=== PATIENT | female | born 1995 | race American Indian/Alaskan Native ===

== ENCOUNTER 2019-09-26 06:13 | Emergency (ER) | payer SELFPAY ==
[2019-09-26 06:53] LABS: Basophils % (Auto) 0.1 % (0.0-1.8); Eosinophils # (Auto) 0.1 K/mm3 (0.0-0.4); Eosinophils % (Auto) 0.7 % (0.0-4.3); Hematocrit 41.1 % (30.3-42.9); Lymphocytes # (Auto) 3.1 K/mm3 (1.2-5.4); Mean Corpuscular HGB Conc 32 % (30-34); Mean Corpuscular Volume 77 fl (79-97); Monocytes # (Auto) 1.1 K/mm3 (0.0-0.8); Monocytes % (Auto) 8.6 % (0.0-7.3); Platelet Count 282 K/mm3 (140-440); Red Blood Count 5.36 M/mm3 (3.65-5.03); Red Cell Distribution Width 16.3 % (13.2-15.2)
[2019-09-26 07:18] LABS: Alanine Aminotransferase 16 units/L (7-56); Albumin 4.5 g/dL (3.9-5); BUN/Creatinine Ratio 16; Blood Urea Nitrogen 13 mg/dL (7-17); Calcium 9.7 mg/dL (8.4-10.2); Hemolysis Index 7
[2019-09-26 07:33] LABS: Bacteria,Urine 1+ /HPF (Negative); Bilirubin,Urine NEG (Negative); Blood,Urine MOD (Negative); Color,Urine Yellow (Yellow); Mucus,Urine 2+ /HPF; Protein,Urine <15 mg/dL mg/dL (Negative); Urobilinogen,Urine < 2.0 mg/dL (<2.0)
[2019-09-26] MEDS ORDERED: SODIUM CHLORIDE 0.9% 1000 ML 1,000 ML IV ONE (08:14)
[2019-09-26] MEDS ORDERED: MORPHINE 4 MG/1 ML INJ IV ONE (08:14)
[2019-09-26] MEDS ORDERED: ONDANSETRON 4 MG/2 ML INJ IV ONE (08:14)
--- NOTE | 2019-09-26 08:21 | Emergency Department Report ---
ED Abdominal Pain HPI - General Chief Complaint: Abdominal Pain Stated Complaint: ABDOMINAL PAIN Time Seen by Provider: 09/26/19 07:11 Source: patient, EMS Mode of arrival: Ambulatory Limitations: No Limitations - History of Present Illness Initial Comments: This is a 23-year-old female nontoxic, well nourished in appearance, no acute signs of distress presents to the ED with c/o of nausea and lower abdominal pain x days. Patient denies any vomiting. Patient stated has some white colored vaginal discharge but denies any odor. Patient describes abdominal pain as cramping and aching with level of 8/10 diffuse. Patient denies chest pain, short of breath, fever, hemoptysis, blood in stool, chills, headache, stiff neck, numbness or tingling. Patient denies any diarrhea or constipation. Denies any blood in stool. Patient denies any recent travels. Patient denies any drug allergies. MD Complaint: abdominal pain -: days(s) Location: LLQ, RLQ Radiation: none Migration to: no migration Severity scale (0 -10): 8 Quality: cramping, aching Consistency: constant Improves With: nothing Worsens With: nothing Associated Symptoms: nausea. denies: vomiting, diarrhea, fever, chills, constipation, dysuria, hematemesis, hematochezia, melena, hematuria, anorexia, syncope - Related Data Previous Rx's Medication Instructions Recorded Last Taken Type cephALEXin [Keflex] 500 mg PO Q6H #40 capsule 12/01/13 Unknown Rx metroNIDAZOLE [Flagyl] 500 mg PO BID #20 tablet 01/07/14 Unknown Rx Naproxen 500 mg PO Q12H PRN #12 tablet 09/26/19 Unknown Rx Ondansetron [Zofran Odt] 4 mg PO Q8HR PRN #12 tab.rapdis 09/26/19 Unknown Rx metroNIDAZOLE [Flagyl] 500 mg PO Q12HR #14 tab 09/26/19 Unknown Rx Allergies Allergy/AdvReac Type Severity Reaction Status Date / Time No Known Allergies Allergy Verified 01/07/14 11:35 ED Review of Systems ROS: Stated complaint: ABDOMINAL PAIN Other details as noted in HPI Constitutional: denies: chills, fever Eyes: denies: eye pain, eye discharge, vision change ENT: denies: ear pain, throat pain Respiratory: denies: cough, shortness of breath, wheezing Cardiovascular: denies: chest pain, palpitations Endocrine: no symptoms reported Gastrointestinal: abdominal pain, nausea. denies: diarrhea Genitourinary: discharge. denies: urgency, dysuria, frequency, hematuria, abnormal menses, dyspareunia Musculoskeletal: denies: back pain, joint swelling, arthralgia Skin: denies: rash, lesions Neurological: denies: headache, weakness, paresthesias Psychiatric: denies: anxiety, depression Hematological/Lymphatic: denies: easy bleeding, easy bruising ED Past Medical Hx - Past Medical History Previous Medical History?: No Hx Seizures: Yes (as a child) - Surgical History Past Surgical History?: No - Social History Smoking Status: Current Every Day Smoker Substance Use Type: Alcohol, Other - Medications Home Medications: Home Medications Medication Instructions Recorded Confirmed Last Taken Type cephALEXin [Keflex] 500 mg PO Q6H #40 capsule 12/01/13 Unknown Rx metroNIDAZOLE [Flagyl] 500 mg PO BID #20 tablet 01/07/14 Unknown Rx Naproxen 500 mg PO Q12H PRN #12 tablet 09/26/19 Unknown Rx Ondansetron [Zofran Odt] 4 mg PO Q8HR PRN #12 tab.rapdis 09/26/19 Unknown Rx metroNIDAZOLE [Flagyl] 500 mg PO Q12HR #14 tab 09/26/19 Unknown Rx ED Physical Exam - General Limitations: No Limitations General appearance: alert, in no apparent distress - Head Head exam: Present: atraumatic, normocephalic - Eye Eye exam: Present: normal appearance - Neck Neck exam: Present: normal inspection, full ROM. Absent: tenderness, men ingismus, lymphadenopathy - Respiratory Respiratory exam: Present: normal lung sounds bilaterally. Absent: respiratory distress, wheezes, rales, rhonchi, stridor, chest wall tenderness, accessory muscle use, decreased breath sounds, prolonged expiratory - Cardiovascular Cardiovascular Exam: Present: regular rate, normal rhythm, normal heart sounds. Absent: bradycardia, tachycardia, irregular rhythm, systolic murmur, diastolic murmur, rubs, gallop - GI/Abdominal GI/Abdominal exam: Present: soft, tenderness (RLQ), normal bowel sounds. Absent: distended, guarding, rebound, rigid, diminished bowel sounds - External exam: Present: normal external exam, other (Ssis Architect Miroslava paradmic present during exam). Absent: erythema, swelling, lesions, lacerations, ecchymosis, bleeding Speculum exam: Present: normal speculum exam, cervical discharge, other (Ssis Architect Miroslava paradmic present during exam). Absent: erythema, vaginal discharge, vaginal bleeding, foreign body, tissue, laceration Bi-manual exam: Present: cervical motion tendernes, other (Ssis Architect Miroslava paradmic present during exam). Absent: adnexal tenderness, adnexal mass, uterine enlargement, uterine tenderness - Extremities Exam Extremities exam: Present: normal inspection, full ROM - Back Exam Back exam: Present: normal inspection, full ROM. Absent: tenderness, CVA tenderness (R), CVA tenderness (L), muscle spasm, paraspinal tenderness, vertebral tenderness, rash noted - Neurological Exam Neurological exam: Present: alert, oriented X3, normal gait - Psychiatric Psychiatric exam: Present: normal affect, normal mood - Skin Skin exam: Present: warm, dry, intact, normal color. Absent: rash ED Course Vital Signs 09/26/19 09/26/19 09/26/19 06:15 06:54 09:01 Temperature 98.0 F Pulse Rate 90 Respiratory 20 18 Rate Blood Pressure 116/78 [Left] O2 Sat by Pulse 98 Oximetry 09/26/19 09:18 Temperature Pulse Rate Respiratory 18 Rate Blood Pressure [Left] O2 Sat by Pulse 100 Oximetry - Reevaluation(s) Reevaluation #1: 09/26/19 08:25 Patient is speaking in full sentences with no signs of distress noted. ED Medical Decision Making - Lab Data Result diagrams: 09/26/19 06:34 09/26/19 06:34 - Medical Decision Making This is a 23-year-old female that presents with bacterial vaginosis, cervical motion tenderness and right ovarian cyst. Patient is stable and was examined by me. Labs obtained. UA obtained. CT of abdomen with IV and p.o. contrast obtained and dictated by the radiologist. Patient is notified of the report with no questions noted by the patient. Vital signs are stable prior to discharge. Patient received medical treatment in the ED which patient stated symptoms has resovled and subsided. Patient also received Rocephin and azithromycin in the ER. She was instructed to return in 3 to 5 days for gonorrhea chlamydia results. Was instructed note to operate any machinery due to possible drowsiness and stated someone will drive the patient home. A by mouth challenge has been obtained and patient tolerated well with no nausea vomiting. Patient was also instructed to Follow-up with a primary care doctor in 3-5 days or if symptoms worsen and continue return to emergency room as soon as possible. At time of discharge, the patient does not seem toxic or ill in appearance. No acute signs of distress noted. Patient agrees to discharge treatment plan of care. No further questions noted by the patient. Critical care attestation.: If time is entered above; I have spent that time in minutes in the direct care of this critically ill patient, excluding procedure time. ED Disposition Clinical Impression: Bacterial vaginosis, Cervical motion tenderness, Possible exposure to STD, Right ovarian cyst, Nausea Abdominal pain Qualifiers: Abdominal location: right lower quadrant Qualified Code(s): R10.31 - Right lower quadrant pain Disposition: - TO HOME OR SELFCARE Is pt being admited?: No Does the pt Need Aspirin: No Condition: Stable Instructions: Abdominal Pain (ED), Bacterial Vaginosis (ED), Safe Sex (ED) Additional Instructions: Follow-up with a primary care and [employer] [employer] [employer] doctor in 3-5 days or if symptoms worsen and continue return to emergency room as soon as possible. Prescriptions: metroNIDAZOLE [Flagyl] 500 mg PO Q12HR #14 tab Naproxen 500 mg PO Q12H PRN #12 tablet PRN Reason: Pain , Severe (7-10) Ondansetron [Zofran Odt] 4 mg PO Q8HR PRN #12 tab.rapdis PRN Reason: Nausea Referrals: PRIMARY CAREMD [Primary Care Provider] - 3-5 Days SELVIN MONTOYA MD [Staff Physician] - 3-5 Days GRUPO BROWNE MD [Staff Physician] - 3-5 Days [facility] [Provider Group] - 3-5 Days [facility] [Provider Group] - 3-5 Days Forms: Work/School Release Form(ED)
--- NOTE | 2019-09-26 09:53 | Cat Scan Report ---
CT abdomen pelvis w con INDICATION / CLINICAL INFORMATION: lower abdominal pain. TECHNIQUE: All CT scans at this location are performed using CT dose reduction for ALARA by means of automated e xposure control. COMPARISON: None available. FINDINGS: Limited lower thoracic images are negative. ABDOMEN: The gallbladder, liver, spleen, pancreas and kidneys are normal. No retroperitoneal adenopathy or renal masses. Contrast opacification of the small bowel is normal. Pelvis: A 3.7 cm right ovarian cyst is identified without dependent free fluid in the pelvis. There are no acute inflammatory changes identified. No significant skeletal abnormalities. IMPRESSION: 1. 3.7 cm right ovarian cyst. Signer Name: Marquez Sims MD Signed: 09/26/2019 9:48 AM Workstation Name: [id number]
[2019-09-26] MEDS ORDERED: AZITHROMYCIN 250 MG TAB PO ONE (09:55)
[2019-09-26] MEDS ORDERED: LIDOCAINE-MPF (1%) 10 MG/1 ML VIAL 5 ML INFILTRATI ONE (09:55)
[2019-09-26 10:37] VITALS: BP 103/72
== END 2019-09-26 10:33 | disposition home or self-care (01) ==
LOC: ED 06:13
DX: N76.0 Acute vaginitis (principal); B96.89 Other specified bacterial agents as the cause of diseases classified elsewhere; N83.291 Other ovarian cyst, right side; Z20.2 Contact with and (suspected) exposure to infections with a predominantly sexual mode of transmission
CPT/HCPCS: 36415; 74177; 80053; 81001; 84702; 85025; 87210; 87591; 96372; 96374; 96375; 99284; J0696; J2270; J2405; J7030; Q9967

== ENCOUNTER 2021-04-11 18:04 | Emergency (ER) | payer SELFPAY ==
[2021-04-11 19:43] VITALS: BP 109/57
[2021-04-11] MEDS ORDERED: LIDOCAINE-MPF (1%) 10 MG/1 ML VIAL 5 ML INFILTRATI ONE (19:56)
[2021-04-11 20:26] LABS: Bilirubin,Urine NEG (Negative); Blood,Urine SM (Negative); Color,Urine Straw (Yellow); HCG Qualitative,Urine Negative (Negative); Mucus,Urine FEW /HPF; Protein,Urine <15 mg/dL mg/dL (Negative); Urobilinogen,Urine < 2.0 mg/dL (<2.0)
--- NOTE | 2021-04-11 20:36 | Emergency Department Report ---
ED Female HPI - General Chief complaint: Urogenital-Female Stated complaint: Lower pains Time Seen by Provider: 04/11/21 19:45 Source: patient Mode of arrival: Ambulatory Limitations: No Limitations - History of Present Illness Initial comments: Patient is a 25-year-old female presents emergency room complaints of dysuria for 1 week. She states that she also has vaginal discharge and lower abdominal discomfort. She reports that she had unprotected intercourse with her male partner and that he is reportedly also having symptoms. She denies any fever, vomiting, diarrhea, vaginal bleeding, back pain. Medical history of depression. No allergies to medications. - Related Data Previous Rx's Medication Instructions Recorded Last Taken Type cephALEXin [Keflex] 500 mg PO Q6H #40 capsule 12/01/13 Unknown Rx metroNIDAZOLE [Flagyl] 500 mg PO BID #20 tablet 01/07/14 Unknown Rx Naproxen 500 mg PO Q12H PRN #12 tablet 09/26/19 Unknown Rx Ondansetron [Zofran Odt] 4 mg PO Q8HR PRN #12 tab.rapdis 09/26/19 Unknown Rx metroNIDAZOLE [Flagyl] 500 mg PO Q12HR #14 tab 09/26/19 Unknown Rx Doxycycline Hyclate [Doxycycline 100 mg PO BID 7 Days #14 tab 04/11/21 Unknown Rx Hyclate TAB] Fluconazole [Diflucan TAB] 150 mg PO ONCE 1 Days #3 tablet 04/11/21 Unknown Rx metroNIDAZOLE [Flagyl] 500 mg PO BID 7 Days #14 tab 04/11/21 Unknown Rx Allergies Allergy/AdvReac Type Severity Reaction Status Date / Time No Known Allergies Allergy Verified 04/11/21 19:43 ED Review of Systems ROS: Stated complaint: Lower pains Other details as noted in HPI Comment: All other systems reviewed and negative ED Past Medical Hx - Past Medical History Hx Seizures: Yes (as a child) - Surgical History Past Surgical History?: No - Social History Smoking Status: Current Every Day Smoker Substance Use Type: Alcohol, Other - Medications Home Medications: Home Medications Medication Instructions Recorded Confirmed Last Taken Type cephALEXin [Keflex] 500 mg PO Q6H #40 capsule 12/01/13 Unknown Rx metroNIDAZOLE [Flagyl] 500 mg PO BID #20 tablet 01/07/14 Unknown Rx Naproxen 500 mg PO Q12H PRN #12 tablet 09/26/19 Unknown Rx Ondansetron [Zofran Odt] 4 mg PO Q8HR PRN #12 tab.rapdis 09/26/19 Unknown Rx metroNIDAZOLE [Flagyl] 500 mg PO Q12HR #14 tab 09/26/19 Unknown Rx Doxycycline Hyclate [Doxycycline 100 mg PO BID 7 Days #14 tab 04/11/21 Unknown Rx Hyclate TAB] Fluconazole [Diflucan TAB] 150 mg PO ONCE 1 Days #3 tablet 04/11/21 Unknown Rx metroNIDAZOLE [Flagyl] 500 mg PO BID 7 Days #14 tab 04/11/21 Unknown Rx ED Physical Exam - General Limitations: No Limitations General appearance: alert, in no apparent distress - Head Head exam: Present: atraumatic, normocephalic - Eye Eye exam: Present: normal appearance - ENT ENT exam: Present: mucous membranes moist - Respiratory Respiratory exam: Present: normal lung sounds bilaterally. Absent: respiratory distress, wheezes, rales, rhonchi, stridor, chest wall tenderness, accessory muscle use, decreased breath sounds, prolonged expiratory - Cardiovascular Cardiovascular Exam: Present: regular rate, normal rhythm, normal heart sounds. Absent: systolic murmur, diastolic murmur, rubs, gallop - GI/Abdominal GI/Abdominal exam: Present: soft, normal bowel sounds. Absent: distended, tenderness, guarding, rebound, rigid - Neurological Exam Neurological exam: Present: alert, oriented X3 - Psychiatric Psychiatric exam: Present: normal affect, normal mood - Skin Skin exam: Present: warm, dry, intact ED Course Vital Signs 04/11/21 04/11/21 19:42 20:56 Temperature 98.5 F Pulse Rate 76 65 Respiratory 17 17 Rate Blood Pressure 109/57 [Right] O2 Sat by Pulse 98 100 Oximetry ED Medical Decision Making - Lab Data Lab Results 04/11/21 Range/Units Unknown Urine Color Straw (Yellow) Urine Turbidity Slightly-cloudy (Clear) Urine pH 6.0 (5.0-7.0) Ur Specific [place] 1.005 (1.003-1.030) Urine Protein <15 mg/dl (Negative) mg/dL Urine Glucose (UA) Neg (Negative) mg/dL Urine Ketones Neg (Negative) mg/dL Urine Blood Sm (Negative) Urine Nitrite Neg (Negative) Urine Bilirubin Neg (Negative) Urine Urobilinogen < 2.0 (<2.0) mg/dL Ur Leukocyte Esterase Lg (Negative) Urine WBC (Auto) 83.0 H (0.0-6.0) /HPF Urine RBC (Auto) 3.0 (0.0-6.0) /HPF U Epithel Cells (Auto) 7.0 (0-13.0) /HPF Urine Mucus Few /HPF Urine Yeast (Budding) Few /HPF Urine HCG, Qual Negative (Negative) - Medical Decision Making Patient is a 25-year-old female presents emergency room complaints of dysuria fo r 1 week. She states that she also has vaginal discharge and lower abdominal discomfort. She reports that she had unprotected intercourse with her male partner and that he is reportedly also having symptoms. She denies any fever, vomiting, diarrhea, vaginal bleeding, back pain. Medical history of depression. No allergies to medications. Vitals are normal. Patient has no abdominal tenderness on exam. UA shows white blood cells, leukocyte esterase, no nitrites, there is yeast present, urine is negative. Given that her partner is also having symptoms, symptoms could very likely be related to STD. Patient given Rocephin IM while in the emergency department. Patient given prescription for medications. Advised patient Please take medication as prescribed. Please be sure to take antibiotics with food. Increase your water intake. Please have any partners tested and treated as well. Avoid sexual intercourse. Follow-up with the clinic or health department for full STD panel. Return to emergency room for any new or worsening symptoms. Critical care attestation.: If time is entered above; I have spent that time in minutes in the direct care of this critically ill patient, excluding procedure time. ED Disposition Clinical Impression: Dysuria, Vaginal discharge, Yeast vaginitis, Concern about STD in female without diagnosis Disposition: 01 HOME / SELF CARE / HOMELESS Is pt being admited?: No Does the pt Need Aspirin: No Condition: Stable Instructions: Safe Sex Additional Instructions: Please take medication as prescribed. Please be sure to take antibiotics with food. Increase your water intake. Please have any partners tested and treated as well. Avoid sexual intercourse. Follow-up with the clinic or health department for full STD panel. Return to emergency room for any new or worsening symptoms. walk in clinic: [facility] Address: [address] [place] [id number] Prescriptions: Fluconazole [Diflucan TAB] 150 mg PO ONCE 1 Days #3 tablet Doxycycline Hyclate [Doxycycline Hyclate TAB] 100 mg PO BID 7 Days #14 tab metroNIDAZOLE [Flagyl] 500 mg PO BID 7 Days #14 tab Referrals: PRIMARY CARE, [Primary Care Provider] - 3-5 Days [facility] [Outside] - 3-5 Days Time of Disposition: 20:34 Print Language: PALAUAN
== END 2021-04-11 20:50 | disposition home or self-care (01) ==
LOC: ED 18:04
DX: N76.0 Acute vaginitis (principal); F17.290 Nicotine dependence, other tobacco product, uncomplicated; Z20.2 Contact with and (suspected) exposure to infections with a predominantly sexual mode of transmission; Z79.899 Other long term (current) drug therapy
CPT/HCPCS: 81001; 81025; 87086; 96372; 99283; J0696; J3490

== ENCOUNTER 2021-12-14 20:32 | Emergency (ER) | payer SELFPAY ==
[2021-12-14 22:41] LABS: Color,Urine Colorless (Yellow)
[2021-12-14 22:47] LABS: HCG Qualitative,Urine Negative (Negative)
--- NOTE | 2021-12-15 00:35 | Emergency Department Report ---
ED Female HPI - General Chief complaint: Abdominal Pain Stated complaint: LOWER AB PAIN Time Seen by Provider: 12/14/21 22:31 Source: patient Mode of arrival: Ambulatory Limitations: No Limitations - History of Present Illness MD Complaint: dysuria -: Gradual, days(s) (3) Location: suprapubic Radiation: non-radiating Severity: mild Quality: burning Worsens with: urination Are you Now?: No Associated Symptoms: dysuria - Related Data Sexually active: Yes Previous Rx's Medication Instructions Recorded Last Taken Type cephALEXin [Keflex] 500 mg PO Q6H #40 capsule 12/01/13 Unknown Rx metroNIDAZOLE [Flagyl] 500 mg PO BID #20 tablet 01/07/14 Unknown Rx Naproxen 500 mg PO Q12H PRN #12 tablet 09/26/19 Unknown Rx Ondansetron [Zofran Odt] 4 mg PO Q8HR PRN #12 tab.rapdis 09/26/19 Unknown Rx metroNIDAZOLE [Flagyl] 500 mg PO Q12HR #14 tab 09/26/19 Unknown Rx Doxycycline Hyclate [Doxycycline 100 mg PO BID 7 Days #14 tab 04/11/21 Unknown Rx Hyclate TAB] metroNIDAZOLE [Flagyl] 500 mg PO BID 7 Days #14 tab 04/11/21 Unknown Rx Fluconazole [Diflucan TAB] 150 mg PO ONCE 1 Days #3 tablet 12/15/21 Unknown Rx Nitrofurantoin [place]/M-Cryst 100 mg PO Q12HR #20 capsule 12/15/21 Unknown Rx [Macrobid CAP] Phenazopyridine [Pyridium] 200 mg PO TID #9 tab 12/15/21 Unknown Rx Allergies Allergy/AdvReac Type Severity Reaction Status Date / Time No Known Allergies Allergy Verified 04/11/21 19:43 ED Review of Systems ROS: Stated complaint: LOWER AB PAIN Other details as noted in HPI Comment: All other systems reviewed and negative ED Past Medical Hx - Past Medical History Hx Seizures: Yes (as a child) - Social History Smoking Status: Current Every Day Smoker Substance Use Type: Alcohol, Other - Medications Home Medications: Home Medications Medication Instructions Recorded Confirmed Last Taken Type cephALEXin [Keflex] 500 mg PO Q6H #40 capsule 12/01/13 Unknown Rx metroNIDAZOLE [Flagyl] 500 mg PO BID #20 tablet 01/07/14 Unknown Rx Naproxen 500 mg PO Q12H PRN #12 tablet 09/26/19 Unknown Rx Ondansetron [Zofran Odt] 4 mg PO Q8HR PRN #12 tab.rapdis 09/26/19 Unknown Rx metroNIDAZOLE [Flagyl] 500 mg PO Q12HR #14 tab 09/26/19 Unknown Rx Doxycycline Hyclate [Doxycycline 100 mg PO BID 7 Days #14 tab 04/11/21 Unknown Rx Hyclate TAB] metroNIDAZOLE [Flagyl] 500 mg PO BID 7 Days #14 tab 04/11/21 Unknown Rx Fluconazole [Diflucan TAB] 150 mg PO ONCE 1 Days #3 tablet 12/15/21 Unknown Rx Nitrofurantoin [place]/M-Cryst 100 mg PO Q12HR #20 capsule 12/15/21 Unknown Rx [Macrobid CAP] Phenazopyridine [Pyridium] 200 mg PO TID #9 tab 12/15/21 Unknown Rx ED Physical Exam - General Limitations: No Limitations General appearance: alert, in no apparent distress - Head Head exam: Present: atraumatic, normocephalic - Eye Eye exam: Present: normal appearance - ENT ENT exam: Present: mucous membranes moist - Neck Neck exam: Present: normal inspection - Respiratory Respiratory exam: Present: normal lung sounds bilaterally. Absent: respiratory distress - Cardiovascular Cardiovascular Exam: Present: regular rate, normal rhythm. Absent: systolic murmur, diastolic murmur, rubs, gallop - GI/Abdominal GI/Abdominal exam: Present: soft, tenderness (Suprapubic region with palpation and moderate, to the left flank), normal bowel sounds - Extremities Exam Extremities exam: Present: normal inspection - Back Exam Back exam: Present: normal inspection - Neurological Exam Neurological exam: Present: alert, oriented X3 - Psychiatric Psychiatric exam: Present: normal affect, normal mood - Skin Skin exam: Present: warm, dry, intact, normal color. Absent: rash ED Course Vital Signs 12/14/21 20:38 Temperature 98.0 F Pulse Rate 84 Respiratory 18 Rate Blood Pressure 117/75 O2 Sat by Pulse 99 Oximetry ED Medical Decision Making - EKG Data Interpretation: no acute changes, normal EKG Critical care attestation.: If time is entered above; I have spent that time in minutes in the direct care of this critically ill patient, excluding procedure time. ED Disposition Clinical Impression: UTI (urinary tract infection) Disposition: 01 HOME / SELF CARE / HOMELESS Is pt being admited?: No Does the pt Need Aspirin: No Condition: Stable Instructions: Abdominal Pain (ED), Urinalysis Test, Urinary Tract Infection, Adult, and Urinary Tract Infection Prescriptions: Fluconazole [Diflucan TAB] 150 mg PO ONCE 1 Days #3 tablet Nitrofurantoin [place]/M-Cryst [Macrobid CAP] 100 mg PO Q12HR #20 capsule Phenazopyridine [Pyridium] 200 mg PO TID #9 tab Referrals: SELVIN MONTOYA MD [Primary Care Provider] - 3-5 Days
[2021-12-15 01:17] VITALS: BP 135/83
== END 2021-12-15 01:15 | disposition home or self-care (01) ==
LOC: ED 20:32
DX: N39.0 Urinary tract infection, site not specified (principal); F17.200 Nicotine dependence, unspecified, uncomplicated; Z72.89 Other problems related to lifestyle; Z79.899 Other long term (current) drug therapy
CPT/HCPCS: 81001; 81025; 87086; 99283